=== PATIENT | male | born 1970 | race Caucasian/White ===

== ENCOUNTER 2018-11-22 08:56 | Day surgery (SDC) | payer BC ==
[~2018-11-22] VITALS: Ht 180.3 cm; Wt 82.7 kg
[2018-11-22 09:59] VITALS: Ht 180.3 cm; Wt 82.7 kg
[2018-11-22] MEDS ORDERED: NO ACTIVE MEDS (10:05)
[2018-11-22 10:11] VITALS: BP 148/81; PULSE 62; RESP 16
[2018-11-22] MEDS ORDERED: FENTAnyl 50 MCG/ML VIAL ONE (10:48)
[2018-11-22] MEDS ORDERED: MIDAZOLAM 1 MG/ML 2 ML INJ ONE ×2 (10:48)
== END 2018-11-22 12:32 | disposition home or self-care (01) ==
LOC: GIL 08:56
PROVIDERS: ATTEND Internal Medicine Gastroenterology
DX: Z12.11 Encounter for screening for malignant neoplasm of colon (principal); Z80.0 Family history of malignant neoplasm of digestive organs
CPT/HCPCS: 45378; J2250; J3010; Z7610